=== PATIENT | female | born 1960 | race Asian ===

== ENCOUNTER 2024-10-23 15:05 | Emergency (ER) | payer OTHER ==
[~2024-10-23] VITALS: Ht 160 cm; Wt 69.0 kg
[2024-10-23 15:07] VITALS: O2SAT 100
[2024-10-23] MEDS ORDERED: IBUP-2028 MT (16:25)
[2024-10-23] MEDS: ACETAMINOPHEN 325MG TABLET PO ONE (16:39)
[2024-10-23 16:58] VITALS: BP 102/71; PULSE 87; RESP 18; TEMP 36.8; O2SAT 98
== END 2024-10-23 16:58 | disposition home or self-care (01) ==
LOC: ER 15:05
DX: M25.562 Pain in left knee (principal); H54.62 Unqualified visual loss, left eye, normal vision right eye; W18.30XA Fall on same level, unspecified, initial encounter; Y93.89 Activity, other specified; Y92.89 Other specified places as the place of occurrence of the external cause; Y99.8 Other external cause status
CPT/HCPCS: 73560; 99283; Z7610; L1830